=== PATIENT | male | born 1990 | race Caucasian/White ===

== ENCOUNTER → 2017-04-04 | Outpatient (CLI) | payer BC, OTHER ==
--- NOTE | 2017-04-10 07:51 | SLEEPCENT ---
DATE OF PROCEDURE: 04/04/2017 ORDERED BY: ROB Olvera Nocturnal polysomnography was performed for evaluation of sleep physiology in this patient with a history of snoring and nonrestorative sleep associated with excessive daytime somnolence. 7 hours and 37 minutes of data were reviewed. There were 378 minutes of sleep identified. Sleep latency was mildly prolonged at 19 minutes. Rapid eye movement (REM) more so prolonged at 182 minutes. Sleep architecture was initially fragmented by spontaneous arousals. Once established, improvement was seen. There were 2 REM periods appreciated. Overall sleep efficiency was 83.4%. The patient's EKG shows a sinus rhythm with an average heart rate of 62 beats per minute. EEG showed reasonably normal waveforms for awake and sleep with some alpha intrusion into non REM stages. Apparently, 12 respirations events identified of 10 seconds in duration or greater for an apnea hypopnea index of 1.9. Snoring was noted over the course of the test and arousals from respiratory events when arousals from snoring were included occurred 4.6 times per hour. Oxygen saturations remained 90% plus through the entire test. There was little limb activity appreciated, and remaining of measures of sleep physiology were normal. IMPRESSION: 1. Normal nocturnal polysomnography with snoring. 2. Mild alpha intrusion into non REM stages. RECOMMENDATION: Interventions to optimize upper airway tone and address the patient's snoring problem may improve the quality of sleep.
== END ==
LOC: M SLEEP 20:07
PROVIDERS: ATTEND Nurse Practitioner Adult Health
DX: G47.30 Sleep apnea, unspecified (principal)